=== PATIENT | female | born 1970 | race Caucasian/White ===

== ENCOUNTER 2017-09-15 12:14 | Inpatient (IN) | payer OTHER ==
[2017-09-15 13:15] LABS: Hematocrit 39.7 % (30.3-42.9); Hemoglobin 13.4 gm/dl (10.1-14.3); Mean Corpuscular HGB Conc 34 % (30-34); Mean Corpuscular Hemoglobin 29 pg (28-32); Mean Corpuscular Volume 86 fl (79-97); Platelet Count 285 K/mm3 (140-440); Red Blood Count 4.63 M/mm3 (3.65-5.03); Red Cell Distribution Width 13.3 % (13.2-15.2); White Blood Count 10.9 K/mm3 (4.5-11.0)
[2017-09-15 13:56] LABS: Anion Gap TNR mmol/L; BUN/Creatinine Ratio TNR; Blood Urea Nitrogen TNR mg/dL (7-17); Carbon Dioxide TNR mmol/L (22-30); Chloride TNR mmol/L (98-107); Glucose TNR mg/dL (65-100); Potassium TNR mmol/L (3.6-5.0); Sodium TNR mmol/L (137-145)
[2017-09-15 13:57] LABS: Alanine Aminotransferase TNR units/L (7-56); Albumin TNR g/dL (3.9-5); Albumin/Globulin Ratio TNR %; Alkaline Phosphatase TNR units/L (35-129); Bilirubin,Total TNR mg/dL (0.1-1.2); Calcium TNR mg/dL (8.4-10.2); Total Protein TNR g/dL (6.3-8.2)
[2017-09-15 14:18] LABS: Anion Gap 18 mmol/L; BUN/Creatinine Ratio 20; Blood Urea Nitrogen 8 mg/dL (7-17); Calcium 8.6 mg/dL (8.4-10.2); Carbon Dioxide 23 mmol/L (22-30); Chloride 96.7 mmol/L (98-107); Glucose 131 mg/dL (65-100); Potassium 3.7 mmol/L (3.6-5.0); Sodium 134 mmol/L (137-145)
[2017-09-15 14:22] LABS: Alanine Aminotransferase 13 units/L (7-56); Albumin 4.3 g/dL (3.9-5); Albumin/Globulin Ratio 1.3 %; Alkaline Phosphatase 87 units/L (35-129); Total Protein 7.6 g/dL (6.3-8.2)
[2017-09-15 14:23] LABS: Bilirubin,Direct < 0.2 mg/dL (0-0.2)
[2017-09-15] MEDS ORDERED: APRESOLINE IV ONE (14:26)
--- NOTE | 2017-09-15 14:27 | Emergency Department Report ---
ED General Adult HPI - General Chief complaint: Dizziness Stated complaint: DIZZY Time Seen by Provider: 09/15/17 13:47 Source: patient, family, RN notes reviewed Mode of arrival: Ambulatory Limitations: Language Barrier - History of Present Illness Initial comments: offender employment specialist: Jeannie Perdue This is a 47-year-old female who was previously unknown to this provider. She does not have a local primary care doctor, she reports a past medical history of obesity hypertension and high cholesterol. She presents to the ER with a complaint of dizziness. The dizziness has been intermittent over the past few days. It worsens when she walks. It decreases with rest. She initially denies headache, neck pain, chest pain, abdominal pain or shortness of breath. She describes the dizziness as a sensation of feeling drunk, and unsteady. -: Gradual, days(s) Severity scale (0 -10): 3 Consistency: intermittent Improves with: rest Worsens with: movement Associated Symptoms: malaise, weakness. denies: confusion, chest pain, cough, diaphoresis, fever/chills, loss of appetite - Related Data Home Medications Medication Instructions Recorded Confirmed Last Taken No Known Home Medications [No 09/15/17 09/15/17 Unknown Reported Home Medications] Allergies Allergy/AdvReac Type Severity Reaction Status Date / Time No Known Allergies Allergy Unverified 09/15/17 12:26 ED Review of Systems ROS: Stated complaint: DIZZY Other details as noted in HPI Constitutional: malaise, weakness. denies: fever Eyes: denies: eye discharge, vision change ENT: denies: epistaxis Respiratory: denies: cough Cardiovascular: denies: chest pain Gastrointestinal: denies: abdominal pain Genitourinary: as per HPI. denies: dysuria Musculoskeletal: denies: back pain Skin: denies: lesions Neurological: headache, abnormal gait Psychiatric: as per HPI ED Past Medical Hx - Past Medical History Additional medical history: elevated cholesterol - Surgical History Past Surgical History?: No - Social History Smoking Status: Never Smoker Substance Use Type: None - Medications Home Medications: Home Medications Medication Instructions Recorded Confirmed Last Taken Type No Known Home Medications [No 09/15/17 09/15/17 Unknown History Reported Home Medications] ED Physical Exam - General Limitations: Language Barrier General appearance: alert, in no apparent distress - Head Head exam: Present: atraumatic, normocephalic - Eye Eye exam: Present: normal appearance, PERRL, EOMI, other (visual acuity intact to finger counting, color perception, ). Absent: nystagmus - ENT ENT exam: Present: normal exam, normal orophraynx, mucous membranes moist, normal external ear exam - Neck Neck exam: Present: normal inspection, full ROM. Absent: tenderness, meningismus - Respiratory Respiratory exam: Present: normal lung sounds bilaterally. Absent: respiratory distress, wheezes, rales, rhonchi, stridor, chest wall tenderness - Cardiovascular Cardiovascular Exam: Present: regular rate, normal rhythm, normal heart sounds. Absent: bradycardia, tachycardia, irregular rhythm, systolic murmur, diastolic murmur, rubs, gallop - GI/Abdominal GI/Abdominal exam: Present: soft, normal bowel sounds. Absent: distended, tenderness, guarding, rebound, rigid, pulsatile mass - Extremities Exam Extremities exam: Present: normal inspection, full ROM, normal capillary refill. Absent: pedal edema, joint swelling, calf tenderness - Back Exam Back exam: Present: normal inspection, full ROM. Absent: tenderness, CVA tenderness (R), CVA tenderness (L), muscle spasm, paraspinal tenderness, vertebral tenderness - Neurological Exam Neurological exam: Present: alert, oriented X3, CN II-XII intact, abnormal gait (abnormal gait. Unable to perform Romberg examination, unable to perform tandem gait), other (Extraocular movements intact. Tongue midline. No facial droop. Facial sensation intact to light touch in the V1, V2, V3 distribution bilaterally. 5 and 5 strength in 4 extremities.. Sensation is intact to light touch in 4 extremities.). Absent: motor sensory deficit - Psychiatric Psychiatric exam: Present: normal affect, normal mood - Skin Skin exam: Present: warm, dry, intact, normal color. Absent: rash ED Course Vital Signs 09/15/17 09/15/17 09/15/17 12:22 12:45 13:00 Temperature 98.5 F Pulse Rate 84 74 Respiratory 18 16 Rate Blood Pressure 251/112 226/94 Blood Pressure 226/94 [Right] O2 Sat by Pulse 97 99 98 Oximetry 09/15/17 09/15/17 09/15/17 13:30 14:00 14:30 Temperature Pulse Rate 67 70 Respiratory 14 17 Rate Blood Pressure 221/95 221/95 212/104 Blood Pressure [Right] O2 Sat by Pulse 98 97 98 Oximetry 09/15/17 09/15/17 09/15/17 14:33 15:10 15:32 Temperature Pulse Rate 72 Respiratory Rate Blood Pressure 204/90 193/93 193/93 Blood Pressure [Right] O2 Sat by Pulse 92 98 Oximetry 09/15/17 09/15/17 09/15/17 16:00 16:30 17:00 Temperature Pulse Rate 84 Respiratory 17 Rate Blood Pressure 193/93 185/104 185/104 Blood Pressure [Right] O2 Sat by Pulse 98 96 97 Oximetry ED Medical Decision Making - Lab Data Result diagrams: 09/15/17 12:57 09/15/17 13:54 Vital Signs 09/15/17 09/15/17 09/15/17 12:22 12:45 13:00 Temperature 98.5 F Pulse Rate 84 74 Respiratory 18 16 Rate Blood Pressure 251/112 226/94 Blood Pressure 226/94 [Right] O2 Sat by Pulse 97 99 98 Oximetry 09/15/17 09/15/17 09/15/17 13:30 14:00 14:30 Temperature Pulse Rate 67 70 Respiratory 14 17 Rate Blood Pressure 221/95 221/95 212/104 Blood Pressure [Right] O2 Sat by Pulse 98 97 98 Oximetry 09/15/17 09/15/17 09/15/17 14:33 15:10 15:32 Temperature Pulse Rate 72 Respiratory Rate Blood Pressure 204/90 193/93 193/93 Blood Pressure [Right] O2 Sat by Pulse 92 98 Oximetry 09/15/17 16:00 Temperature Pulse Rate Respiratory Rate Blood Pressure 193/93 Blood Pressure [Right] O2 Sat by Pulse 98 Oximetry Lab Results 09/15/17 09/15/17 09/15/17 Range/Units 12:57 13:00 13:00 WBC 10.9 (4.5-11.0) K/mm3 RBC 4.63 (3.65-5.03) M/mm3 Hgb 13.4 (10.1-14.3) gm/dl Hct 39.7 (30.3-42.9) % MCV 86 (79-97) fl MCH 29 (28-32) pg MCHC 34 (30-34) % RDW 13.3 (13.2-15.2) % Plt Count 285 (140-440) K/mm3 Sodium TNR Potassium TNR Chloride TNR Carbon Dioxide TNR Anion Gap TNR BUN TNR Creatinine TNR Estimated GFR > 60 ml/min BUN/Creatinine Ratio TNR Glucose TNR Calcium TNR Magnesium (1.7-2.3) mg/dL Total Bilirubin TNR Direct Bilirubin (0-0.2) mg/dL AST TNR ALT TNR Alkaline Phosphatase TNR Troponin T < 0.010 (0.00-0.029) ng/mL Total Protein TNR Albumin TNR Albumin/Globulin Ratio TNR 09/15/17 09/15/17 Range/Units 13:54 13:54 WBC (4.5-11.0) K/mm3 RBC (3.65-5.03) M/mm3 Hgb (10.1-14.3) gm/dl Hct (30.3-42.9) % MCV (79-97) fl MCH (28-32) pg MCHC (30-34) % RDW (13.2-15.2) % Plt Count (140-440) K/mm3 Sodium 134 L Potassium 3.7 Chloride 96.7 L Carbon Dioxide 23 Anion Gap 18 BUN 8 Creatinine 0.4 L Estimated GFR > 60 ml/min BUN/Creatinine Ratio 20 Glucose 131 H Calcium 8.6 Magnesium 2.10 (1.7-2.3) mg/dL Total Bilirubin 0.70 Direct Bilirubin < 0.2 (0-0.2) mg/dL AST 14 ALT 13 Alkaline Phosphatase 87 Troponin T < 0.010 (0.00-0.029) ng/mL Total Protein 7.6 Albumin 4.3 Albumin/Globulin Ratio 1.3 - EKG Data -: EKG Interpreted by Mi - EKG Data 09/15/17 16:40 Normal sinus, 73 bpm, QTC prolonged, high left ventricular voltage, poor R-wave progression, abnormal EKG, not morphologically consistent with ST elevation myocardial infarction - Radiology Data Radiology results: report reviewed, image reviewed Noncontrast CT scan of the brain is negative for acute findings - Medical Decision Making Differential diagnosis, including but not limited to: Hypertensive urgency, vertebral basilar insufficiency, posterior reversible encephalopathy syndrome, transient ischemic attack, subacute stroke Assessment and plan: 47-year-old female presenting with a few days of unsteady gait and initially no headache, neck pain, chest pain, abdominal pain or shortness of breath. Neurologic examination nonfocal with the exception of broad-based gait, and some posterior circulation signs. She denies neck pain, and she initially denied headache. She is somewhat hypertensive, and is given hydralazine. TPA candidate given onset of symptoms greater than 4.5 hours. Not an endovascular candidate as symptoms have been going on for days. Therefore, no indication to obtain emergent CT angiogram of the head and neck. Case is presented to the Hospital physician, Dr Rubin, who accepted the patient to the medical service for the aforementioned. Critical care attestation.: If time is entered above; I have spent that time in minutes in the direct care of this critically ill patient, excluding procedure time. ED Disposition Clinical Impression: Ataxia, Hypertensive urgency, malignant Disposition: DC-09 OP ADMIT IP TO THIS HOSP Is pt being admited?: Yes Condition: Good Referrals: PRIMARY CARE, [Primary Care Provider] - 3-5 Days
--- NOTE | 2017-09-15 14:35 | XRay Report ---
AP CHEST: HISTORY: Shortness of breath AP view of the chest demonstrates a normal mediastinal and cardiac contour with clear lungs and normal bony and soft tissue structures. IMPRESSION: Unremarkable AP chest.
--- NOTE | 2017-09-15 15:17 | Cat Scan Report ---
FINAL REPORT EXAM: CT HEAD/BRAIN WO CON HISTORY: ataxia, htn TECHNIQUE: CT of the Head without IV contrast. PRIORS: None currently available. FINDINGS: Nearly symmetrical, bilateral decreased attenuation areas in both periventricular white matters of the frontal lobes are not specific. Small lacunar type infarcts in the right and left basal ganglia appear chronic. Posterior fossa arachnoid cysts noted. There is no evidence for acute ischemia. There is no hemorrhage. There is no midline shift. There is no hydrocephalus. There is no mass. Age appropriate whitman-white matter attenuation is noted. There is no calvarial fracture. The temporal bones demonstrate aerated mastoid air cells. The middle ears appear unremarkable. Partially imaged opacified right maxillary sinus noted. Globes are intact. IMPRESSION: Focal areas of near symmetrical decreased attenuation in the periventricular white matter of both frontal lobes is atypical for chronic ischemic changes. Differential diagnosis includes migraines, demyelinating process, encephalitis/encephalopathy, metabolic and toxic encephalopathy and trauma. If clinically indicated further imaging with MRI with and without contrast is recommended. Chronic appearing lacunar infarcts in both basal ganglias. Right maxillary sinus disease.
[2017-09-15] MEDS ORDERED: BABY ASPIRIN PO ONE (15:20)
[2017-09-15] MEDS ORDERED: PERCOCET 5/325 PO PRN (18:24)
[2017-09-15] MEDS ORDERED: DULCOLAX PR PRN (18:24)
[2017-09-15] MEDS ORDERED: MILK OF MAGNESIA PO PRN (18:24)
--- NOTE | 2017-09-15 18:24 | History and Physical Report ---
History of Present Illness Date of examination: 09/15/17 Date of admission: 09/15/17 Chief complaint: CC Dizziness for 4 days High BP History of present illness: GIL: 47-year-old female with past medical history of obesity hypertension and high cholesterol presents to the ER with a complaint of dizziness. The dizziness has been intermittent over the past few days. It worsens when she walks. It decreases with rest. She initially denies headache , neck pain, chest pain, abdominal pain or shortness of breath. She describes the dizziness as a sensation of feeling drunk, and unsteady. Associated Symptoms: malaise, weakness. denies: confusion, chest pain, cough, diaphoresis, fever/chills, loss of appetite - Past Medical History Additional medical history: elevated cholesterol Htn not taking any meds - Surgical History Past Surgical History?: No - Social History Smoking Status: Never Smoker Substance Use Type: None - Medications Home Medications: Home Medications Medication Instructions Recorded Confirmed Last Taken Type No Known Home Medications [No 09/15/17 09/15/17 Unknown History Reported Home Medications] Review of Systems Stated complaint: DIZZY Other details as noted in HPI Constitutional: malaise, weakness. denies: fever Eyes: denies: eye discharge, vision change ENT: denies: epistaxis Respiratory: denies: cough Cardiovascular: denies: chest pain Gastrointestinal: denies: abdominal pain Genitourinary: as per HPI. denies: dysuria Musculoskeletal: denies: back pain Skin: denies: lesions Neurological: headache, abnormal gait Psychiatric: as per HPI Medications and Allergies Allergies Allergy/AdvReac Type Severity Reaction Status Date / Time No Known Allergies Allergy Unverified 09/15/17 12:26 Home Medications Medication Instructions Recorded Confirmed Last Taken Type No Known Home Medications [No 09/15/17 09/15/17 Unknown History Reported Home Medications] Exam - Constitutional Vitals: Temp Pulse Resp BP Pulse Ox 98.5 F 84 17 185/104 97 09/15/17 12:22 09/15/17 17:00 09/15/17 17:00 09/15/17 17:00 09/15/17 17:00 General appearance: Present: no acute distress, well-nourished - EENT Eyes: Present: PERRL ENT: hearing intact, clear oral mucosa - Neck Neck: Present: supple, normal ROM - Respiratory Respiratory effort: normal Respiratory: bilateral: CTA - Cardiovascular Heart Sounds: Present: S1 & S2. Absent: rub, click - Extremities Extremities: pulses symmetrical, No edema Peripheral Pulses: within normal limits - Abdominal General gastrointestinal: Present: soft, non-tender, non-distended, normal bowel sounds Female genitourinary: Present: normal - Integumentary Integumentary: Present: clear, warm, dry - Musculoskeletal Musculoskeletal: gait normal, strength equal bilaterally - Psychiatric Psychiatric: appropriate mood/affect, intact judgment & insight - Neurologic Neurologic: CNII-XII intact, moves all extremities Results - Labs CBC & Chem 7: 09/16/17 05:58 09/16/17 05:58 Labs: Laboratory Last Values WBC 10.9 K/mm3 (4.5-11.0) 09/15/17 12:57 RBC 4.63 M/mm3 (3.65-5.03) 09/15/17 12:57 Hgb 13.4 gm/dl (10.1-14.3) 09/15/17 12:57 Hct 39.7 % (30.3-42.9) 09/15/17 12:57 MCV 86 fl (79-97) 09/15/17 12:57 MCH 29 pg (28-32) 09/15/17 12:57 MCHC 34 % (30-34) 09/15/17 12:57 RDW 13.3 % (13.2-15.2) 09/15/17 12:57 Plt Count 285 K/mm3 (140-440) 09/15/17 12:57 Sodium 134 mmol/L (137-145) L 09/15/17 13:54 Potassium 3.7 mmol/L (3.6-5.0) 09/15/17 13:54 Chloride 96.7 mmol/L (98-107) L 09/15/17 13:54 Carbon Dioxide 23 mmol/L (22-30) 09/15/17 13:54 Anion Gap 18 mmol/L 09/15/17 13:54 BUN 8 mg/dL (7-17) 09/15/17 13:54 Creatinine 0.4 mg/dL (0.7-1.2) L 09/15/17 13:54 Estimated GFR > 60 ml/min 09/15/17 13:54 BUN/Creatinine Ratio 20 % 09/15/17 13:54 Glucose 131 mg/dL (65-100) H 09/15/17 13:54 Calcium 8.6 mg/dL (8.4-10.2) 09/15/17 13:54 Magnesium 2.10 mg/dL (1.7-2.3) 09/15/17 13:54 Total Bilirubin 0.70 mg/dL (0.1-1.2) 09/15/17 13:54 Direct Bilirubin < 0.2 mg/dL (0-0.2) 09/15/17 13:54 AST 14 units/L (5-40) 09/15/17 13:54 ALT 13 units/L (7-56) 09/15/17 13:54 Alkaline Phosphatase 87 units/L (35-129) 09/15/17 13:54 Troponin T < 0.010 ng/mL (0.00-0.029) 09/15/17 13:54 Total Protein 7.6 g/dL (6.3-8.2) 09/15/17 13:54 Albumin 4.3 g/dL (3.9-5) 09/15/17 13:54 Albumin/Globulin Ratio 1.3 % 09/15/17 13:54 - Imaging and Cardiology EKG: report reviewed (NSR LVH by voltage criteria) Assessment and Plan Advance Directives: Yes (Full code) VTE prophylaxis?: Chemical Plan of care discussed with patient/family: Yes - Patient Problems (1) Hypertensive urgency, malignant Current Visit: Yes Status: Acute Plan to address problem: Patient started on Losartan carvedilol and Amlodipine. Hydralazine 10 mg IV q3 PRN Compliance is the issue. To school adjustment counselor about compliance again (2) Encephalopathy, hypertensive Current Visit: Yes Status: Acute Plan to address problem: Correct the BP gradually MRI brain ordered-Expect it to be negative (3) Hyperglycemia Current Visit: Yes Status: Acute Plan to address problem: probably has diabetes. Accucheks and A1c Start oral hypoglycemics if confirmed (4) Ataxia Current Visit: Yes Status: Acute Plan to address problem: sec to Hypertensive encephalopathy. Should resolve with correction of BP (5) HLD (hyperlipidemia) Current Visit: Yes Status: Chronic Qualifiers: Hyperlipidemia type: mixed hyperlipidemia Qualified Code(s): E78.2 - Mixed hyperlipidemia Plan to address problem: Add Statins (6) DVT prophylaxis Current Visit: Yes Status: Acute Plan to address problem: On Lovenox
[2017-09-15 18:44] LABS: Bacteria,Urine 1+ /HPF (Negative); Bilirubin,Urine NEG (Negative); Blood,Urine NEG (Negative); Ketones,Urine 20 mg/dL (Negative); Leukocyte Esterase,Urine TR (Negative); Mucus,Urine FEW /HPF; Nitrite,Urine NEG (Negative); Protein,Urine <15 mg/dL mg/dL (Negative); Urobilinogen,Urine < 2.0 mg/dL (<2.0)
[2017-09-15] MEDS ORDERED: NORVASC ONE (18:48)
[2017-09-15] MEDS: NORVASC PO SCH (18:58)
[2017-09-15] MEDS: APRESOLINE IV PRN ×2 (19:00→22:49)
[2017-09-15] MEDS: ZOFRAN IV PRN (19:00)
[2017-09-15] MEDS ORDERED: COZAAR ONE (19:04)
[2017-09-15] MEDS ORDERED: DILAUDID ONE (19:47)
[2017-09-15] MEDS: DILAUDID IV PRN (19:53)
[2017-09-15] MEDS ORDERED: REGLAN ONE (20:01)
[2017-09-15] MEDS: REGLAN IV PRN (20:05)
[2017-09-15] MEDS: COREG PO SCH (22:49)
[2017-09-16] MEDS: ZOFRAN IV PRN ×2 (02:12→22:32)
[2017-09-16] MEDS: APRESOLINE IV PRN ×2 (02:12→09:21)
[2017-09-16 06:15] LABS: Basophils % (Auto) 0.8 % (0.0-1.8); Hematocrit 38.8 % (30.3-42.9); Hemoglobin 13.2 gm/dl (10.1-14.3); Mean Corpuscular HGB Conc 34 % (30-34); Mean Corpuscular Hemoglobin 29 pg (28-32); Mean Corpuscular Volume 85 fl (79-97); Platelet Count 286 K/mm3 (140-440); Red Blood Count 4.55 M/mm3 (3.65-5.03); Red Cell Distribution Width 13.8 % (13.2-15.2); White Blood Count 12.3 K/mm3 (4.5-11.0)
[2017-09-16 06:36] LABS: Alanine Aminotransferase 14 units/L (7-56); Albumin 4.1 g/dL (3.9-5); Albumin/Globulin Ratio 1.1 %; Alkaline Phosphatase 76 units/L (35-129); Anion Gap 20 mmol/L; BUN/Creatinine Ratio 38; Blood Urea Nitrogen 15 mg/dL (7-17); Calcium 8.7 mg/dL (8.4-10.2); Carbon Dioxide 22 mmol/L (22-30); Chloride 96.8 mmol/L (98-107); Glucose 248 mg/dL (65-100); Potassium 3.5 mmol/L (3.6-5.0); Sodium 135 mmol/L (137-145); Total Protein 7.7 g/dL (6.3-8.2)
[2017-09-16] MEDS: NOVOLOG SUB-Q SCH ×4 (07:30→22:10)
[2017-09-16] MEDS ORDERED: NACL 0.9% 1000 ML 1,000 ML IV SCH (09:00)
[2017-09-16] MEDS: REGLAN IV PRN (09:18)
[2017-09-16] MEDS: LOVENOX SUB-Q SCH (09:26)
[2017-09-16] MEDS: NORVASC PO SCH (11:46)
[2017-09-16] MEDS: COZAAR PO SCH ×2 (11:47→19:43)
[2017-09-16] MEDS: COREG PO SCH ×2 (11:47→22:09)
--- NOTE | 2017-09-16 14:08 | Progress Note ---
Assessment and Plan - Patient Problems (1) Hypertensive urgency, malignant Current Visit: Yes Status: Acute Plan to address problem: Patient started on Losartan carvedilol and Amlodipine. Hydralazine 10 mg IV q3 PRN Compliance is the issue. BNP normalized (2) Encephalopathy, hypertensive Current Visit: Yes Status: Acute Plan to address problem: Correct the BP gradually MRI brain pending (3) Hyperglycemia Current Visit: Yes Status: Acute Plan to address problem: probably has diabetes. Accucheks and A1c Start oral hypoglycemics if confirmed (4) Ataxia Current Visit: Yes Status: Acute Plan to address problem: sec to Hypertensive encephalopathy. Should resolve with correction of BP (5) HLD (hyperlipidemia) Current Visit: Yes Status: Chronic Qualifiers: Hyperlipidemia type: mixed hyperlipidemia Qualified Code(s): E78.2 - Mixed hyperlipidemia Plan to address problem: Add Statins (6) DVT prophylaxis Current Visit: Yes Status: Acute Plan to address problem: On Lovenox Subjective Date of service: 09/16/17 Principal diagnosis: Hypertensive emergency and Encephalopathy Interval history: Still naseous and apparently vomited 5 times Objective - Constitutional Vitals: Vital Signs - 12hr 09/16/17 09/16/17 09/16/17 05:14 09:21 10:00 Temperature 98.6 F Pulse Rate 83 94 H Pulse Rate [ 106 H Apical] Respiratory 20 Rate Blood Pressure 153/77 171/86 O2 Sat by Pulse 96 Oximetry 09/16/17 09/16/17 11:46 11:47 Temperature Pulse Rate 99 H 99 H Pulse Rate [ Apical] Respiratory Rate Blood Pressure 135/65 135/65 O2 Sat by Pulse Oximetry General appearance: Present: no acute distress, well-nourished - EENT Eyes: PERRL, EOM intact ENT: hearing intact, clear oral mucosa Ears: bilateral: normal - Neck Neck: supple, normal ROM - Respiratory Respiratory effort: normal Respiratory: bilateral: CTA - Breasts Breasts: normal - Cardiovascular Heart rate: 76 Rhythm: regular Heart Sounds: Present: S1 & S2. Absent: gallop, rub Extremities: no ischemia, pulses intact, No edema, normal color, Full ROM - Gastrointestinal General gastrointestinal: Present: soft, non-tender, non-distended, normal bowel sounds - Genitourinary Female genitourinary: normal - Integumentary Integumentary: clear, warm, dry - Musculoskeletal Musculoskeletal: 1, strength equal bilaterally - Neurologic Neurologic: moves all extremities - Psychiatric Psychiatric: memory intact, appropriate mood/affect, intact judgment & insight - Allied health notes Allied health notes reviewed: nursing, case management - Labs CBC & Chem 7: 09/16/17 05:58 09/16/17 05:58 Labs: Abnormal lab results 09/15/17 09/15/17 09/16/17 Range/Units 13:54 18:00 05:58 WBC 12.3 H (4.5-11.0) K/mm3 Lymph % (Auto) 13.3 L (13.4-35.0) % Seg Neutrophils % 84.1 H (40.0-70.0) % Seg Neutrophils # 10.3 H (1.8-7.7) K/mm3 Sodium 134 L (137-145) mmol/L Potassium (3.6-5.0) mmol/L Chloride 96.7 L (98-107) mmol/L Creatinine 0.4 L (0.7-1.2) mg/dL Glucose 131 H (65-100) mg/dL POC Glucose (70-105) Urine pH 8.0 H (5.0-7.0) 09/16/17 09/16/17 Range/Units 05:58 12:05 WBC (4.5-11.0) K/mm3 Lymph % (Auto) (13.4-35.0) % Seg Neutrophils % (40.0-70.0) % Seg Neutrophils # (1.8-7.7) K/mm3 Sodium 135 L (137-145) mmol/L Potassium 3.5 L (3.6-5.0) mmol/L Chloride 96.8 L (98-107) mmol/L Creatinine 0.4 L (0.7-1.2) mg/dL Glucose 248 H (65-100) mg/dL POC Glucose 227 H (70-105) Urine pH (5.0-7.0)
--- NOTE | 2017-09-16 17:45 | Magnetic Resonance Report ---
FINAL REPORT PROCEDURE: MR BRAIN WO CON TECHNIQUE: Magnetic resonance imaging of the brain was performed without contrast material. HISTORY: Ataxia COMPARISON: Head CT from the previous day FINDINGS: Cerebellar tonsils are normally positioned. There is a probable midline arachnoid cyst in the posterior fossa measuring 3.9 x 2.1 cm. Normal variant empty sella appearance is seen. Large retention cyst fills the right maxillary sinus. There are confluent areas of increased T2 signal in the bilateral basal ganglia and anterior padilla radiata. Associated mild decreased T1 signal is seen but is less prominent. No associated restricted diffusion is seen in this region. No mass effect is seen. While findings could be from chronic small vessel ischemic changes, a prior anoxic event or chronic metabolic abnormality could cause the appearance. Mild increased T2 signal in the gladys is likely from the same etiology. There is a tiny focus of restricted diffusion seen in the right side of the cervicomedullary junction, image 5 of the diffusion series. This has increased T2 signal and is worrisome for a recent lacunar infarct. No significant mass effect is seen. No evidence of intracranial hemorrhage is seen. IMPRESSION: Probable recent lacunar infarct is seen in the right side of the cervicomedullary junction. This has no significant mass effect. Chronic confluent increased T2 signal is seen in the basal ganglia and padilla radiata symmetrically. While finding could be from chronic small vessel ischemic changes, consideration should be given to prior anoxic event or chronic metabolic abnormality.
[2017-09-17] MEDS: REGLAN IV PRN ×2 (03:49→12:02)
[2017-09-17] MEDS: DILAUDID IV PRN (03:49)
[2017-09-17 06:12] LABS: Alanine Aminotransferase 13 units/L (7-56); Albumin 3.8 g/dL (3.9-5); Albumin/Globulin Ratio 1.2 %; Alkaline Phosphatase 66 units/L (35-129); Anion Gap 17 mmol/L; BUN/Creatinine Ratio 43; Blood Urea Nitrogen 34 mg/dL (7-17); Calcium 8.7 mg/dL (8.4-10.2); Carbon Dioxide 26 mmol/L (22-30); Chloride 102.5 mmol/L (98-107); Glucose 239 mg/dL (65-100); Potassium 3.6 mmol/L (3.6-5.0); Sodium 142 mmol/L (137-145); Total Protein 7.1 g/dL (6.3-8.2)
[2017-09-17] MEDS: NOVOLOG SUB-Q SCH ×5 (08:29→22:34)
[2017-09-17] MEDS: LOVENOX SUB-Q SCH (09:31)
[2017-09-17] MEDS: NORVASC PO SCH (09:32)
[2017-09-17] MEDS: COREG PO SCH ×2 (09:32→22:10)
[2017-09-17] MEDS: COZAAR PO SCH (09:32)
--- NOTE | 2017-09-17 13:12 | Progress Note ---
Assessment and Plan - Patient Problems (1) Acute CVA (cerebrovascular accident) Current Visit: Yes Status: Acute Plan to address problem: Small lacunar infarct in rt cervicomedullary junction.Maybe the reason for ataxia CDS MRA and Echo ordered. Plavix initiated Neuro consult initiated PT to continue (2) HTN (hypertension) Current Visit: Yes Status: Chronic Qualifiers: Hypertension type: essential hypertension Qualified Code(s): I10 - Essential (primary) hypertension Plan to address problem: Started on losartan Amlodipine and Coreg Was not taking any BP meds (3) T2DM (type 2 diabetes mellitus) Current Visit: Yes Status: Acute Qualifiers: Diabetes mellitus complication status: without complication Plan to address problem: New onset HbA1c 7.8 Diabetes education Glimepride 2 mg po qd initiated (4) Hypertensive urgency, malignant Current Visit: Yes Status: Acute Plan to address problem: Patient started on Losartan carvedilol and Amlodipine. Hydralazine 10 mg IV q3 PRN Compliance is the issue. BNP normalized (5) Encephalopathy, hypertensive Current Visit: Yes Status: Acute Plan to address problem: Resolved (6) Ataxia Current Visit: Yes Status: Acute Plan to address problem: sec to Hypertensive encephalopathy. Should resolve with correction of BP (7) HLD (hyperlipidemia) Current Visit: Yes Status: Chronic Qualifiers: Hyperlipidemia type: mixed hyperlipidemia Qualified Code(s): E78.2 - Mixed hyperlipidemia Plan to address problem: Add Statins (8) DVT prophylaxis Current Visit: Yes Status: Acute Plan to address problem: On Lovenox Subjective Date of service: 09/17/17 Principal diagnosis: Hypertensive emergency and Encephalopathy Interval history: No vomiting.Excess sputum Objective - Constitutional Vitals: Vital Signs - 12hr 09/17/17 09/17/17 09/17/17 03:49 04:08 07:43 Temperature 98.9 F Pulse Rate 84 87 Pulse Rate [ From Monitor] Respiratory 18 18 Rate Blood Pressure 135/69 145/70 O2 Sat by Pulse 91 82 L Oximetry 09/17/17 09/17/17 09/17/17 09:32 10:00 11:14 Temperature 99.9 F H Pulse Rate 87 83 92 H Pulse Rate [ 87 From Monitor] Respiratory 18 Rate Blood Pressure 145/70 154/79 O2 Sat by Pulse 90 Oximetry General appearance: Present: no acute distress, well-nourished - EENT Eyes: PERRL, EOM intact ENT: hearing intact, clear oral mucosa Ears: bilateral: normal - Neck Neck: supple, normal ROM - Respiratory Respiratory effort: normal Respiratory: bilateral: CTA - Breasts Breasts: normal - Cardiovascular Rhythm: regular Heart Sounds: Present: S1 & S2. Absent: gallop, rub Extremities: pulses intact, No edema, normal color, Full ROM - Gastrointestinal General gastrointestinal: Present: soft, non-tender, non-distended, normal bowel sounds - Genitourinary Female genitourinary: normal - Integumentary Integumentary: clear, warm, dry - Musculoskeletal Musculoskeletal: 1, strength equal bilaterally - Neurologic Neurologic: moves all extremities, other (Ataxic gait) - Psychiatric Psychiatric: memory intact, appropriate mood/affect, intact judgment & insight - Labs CBC & Chem 7: 09/16/17 05:58 09/17/17 05:30 Labs: Abnormal lab results 09/16/17 09/16/17 09/16/17 Range/Units 08:54 14:02 17:20 BUN (7-17) mg/dL Glucose (65-100) mg/dL POC Glucose 267 H 196 H 209 H (70-105) Hemoglobin A1c (4-6) % Albumin (3.9-5) g/dL 09/16/17 09/17/17 09/17/17 Range/Units 20:14 05:30 05:30 BUN 34 H (7-17) mg/dL Glucose 239 H (65-100) mg/dL POC Glucose 184 H (70-105) Hemoglobin A1c 7.8 H (4-6) % Albumin 3.8 L (3.9-5) g/dL 09/17/17 09/17/17 Range/Units 08:00 11:17 BUN (7-17) mg/dL Glucose (65-100) mg/dL POC Glucose 252 H 304 H (70-105) Hemoglobin A1c (4-6) % Albumin (3.9-5) g/dL - Imaging and cardiology MRI - head: report reviewed (Small lacunar infarct Rt Cervicomedullary junction)
[2017-09-17] MEDS: MUCINEX ER PO SCH ×2 (13:28→22:09)
--- NOTE | 2017-09-17 14:11 | Consultation ---
History of Present Illness Consult date: 09/17/17 History of present illness: will need high dose statin and aspirin / plavi for right medullary plate stroke the vertebrals and basilar artery are OK may be transfered to regular floor vertigo / ataxia expected to subside with PT Medications and Allergies Allergies Allergy/AdvReac Type Severity Reaction Status Date / Time No Known Allergies Allergy Unverified 09/15/17 12:26 Home Medications Medication Instructions Recorded Confirmed Last Taken Type No Known Home Medications [No 09/15/17 09/15/17 Unknown History Reported Home Medications] Active Meds: Active Medications Acetaminophen (Tylenol) 650 mg PO Q4H PRN PRN Reason: Pain MILD(1-3)/Fever >100.5/PAULINO Amlodipine Besylate (Norvasc) 10 mg PO QDAY [facility] Last Admin: 09/17/17 09:32 Dose: 10 mg Bisacodyl (Dulcolax) 10 mg MT QDAY PRN PRN Reason: Constipation unrelieved by MOM Carvedilol (Coreg) 12.5 mg PO BID [facility] Last Admin: 09/17/17 09:32 Dose: 12.5 mg Enoxaparin Sodium (Lovenox) 40 mg SUB-Q QDAY [facility] Last Admin: 09/17/17 09:31 Dose: 40 mg Glimepiride (Amaryl) 2 mg PO QDDIAB [facility] Guaifenesin (Mucinex Er) 600 mg PO BID [facility] Last Admin: 09/17/17 13:28 Dose: 600 mg Hydralazine HCl (Apresoline) 10 mg IV Q3H PRN PRN Reason: Hypertension Last Admin: 09/16/17 09:21 Dose: 10 mg Hydromorphone HCl (Dilaudid) 0.5 mg IV Q3H PRN PRN Reason: Pain , Severe (7-10) Last Admin: 09/17/17 03:49 Dose: 0.5 mg Insulin Aspart (Novolog) 0 units SUB-Q ACHS [facility] PRN Reason: Protocol Last Admin: 09/17/17 12:59 Dose: 6 units Losartan Potassium (Cozaar) 100 mg PO QDAY [facility] Last Admin: 09/17/17 09:32 Dose: 100 mg Magnesium Hydroxide (Milk Of Magnesia) 30 ml PO Q4H PRN PRN Reason: Constipation Metoclopramide HCl (Reglan) 10 mg IV Q6H PRN PRN Reason: Nausea And Vomiting Last Admin: 09/17/17 12:02 Dose: 10 mg Ondansetron HCl (Zofran) 4 mg IV Q3H PRN PRN Reason: N/V unrelieved by Juan Diego Last Admin: 09/16/17 22:32 Dose: 4 mg Oxycodone/Acetaminophen (Percocet 5/325) 1 tab PO Q6H PRN PRN Reason: Pain, Moderate (4-6) Pravastatin Sodium (Pravachol) 20 mg PO QHS [place] Physical Examination - Vital Signs Vital Signs: Vital Signs Temp Pulse Resp BP Pulse Ox 98.5 F 84 18 251/112 97 09/15/17 12:22 09/15/17 12:22 09/15/17 12:22 09/15/17 12:22 09/15/17 12:22 Results - Laboratory Findings CBC and BMP: 09/16/17 05:58 09/17/17 05:30 Abnormal Lab Findings: Abnormal Labs 09/15/17 09/15/17 09/16/17 13:54 18:00 05:58 WBC 12.3 H Lymph % (Auto) 13.3 L Seg Neutrophils % 84.1 H Seg Neutrophils # 10.3 H Sodium 134 L Potassium Chloride 96.7 L BUN Creatinine 0.4 L Glucose 131 H POC Glucose Hemoglobin A1c Albumin Urine pH 8.0 H 09/16/17 09/16/17 09/16/17 05:58 08:54 12:05 WBC Lymph % (Auto) Seg Neutrophils % Seg Neutrophils # Sodium 135 L Potassium 3.5 L Chloride 96.8 L BUN Creatinine 0.4 L Glucose 248 H POC Glucose 267 H 227 H Hemoglobin A1c Albumin Urine pH 09/16/17 09/16/17 09/16/17 14:02 17:20 20:14 WBC Lymph % (Auto) Seg Neutrophils % Seg Neutrophils # Sodium Potassium Chloride BUN Creatinine Glucose POC Glucose 196 H 209 H 184 H Hemoglobin A1c Albumin Urine pH 09/17/17 09/17/17 09/17/17 05:30 05:30 08:00 WBC Lymph % (Auto) Seg Neutrophils % Seg Neutrophils # Sodium Potassium Chloride BUN 34 H Creatinine Glucose 239 H POC Glucose 252 H Hemoglobin A1c 7.8 H Albumin 3.8 L Urine pH 09/17/17 11:17 WBC Lymph % (Auto) Seg Neutrophils % Seg Neutrophils # Sodium Potassium Chloride BUN Creatinine Glucose POC Glucose 304 H Hemoglobin A1c Albumin Urine pH
--- NOTE | 2017-09-17 14:50 | Magnetic Resonance Report ---
FINAL REPORT PROCEDURE: MR MRA/MRV HEAD WO CON TECHNIQUE: 3D [id number] MRA of the head was performed HISTORY: CVA COMPARISON: None FINDINGS: There is normal flow signal of the imaged portions of the internal carotid arteries, anterior and middle cerebral arteries and their branches. Mild atherosclerotic irregularity without high-grade stenosis or vascular occlusion is seen. The right anterior cerebral artery A1 segment is hypoplastic with the A2 segment being largely fed via a patent anterior communicating artery. Normal flow signal is present of the vertebral arteries at the skullbase, being roughly codominant. The basilar and posterior cerebral arteries are patent. There is mild atherosclerotic irregularity without high-grade stenosis. Incidentally seen is the right anterior cerebral artery and bilateral superior cerebellar arteries. There is no high-grade stenosis, vascular occlusion, aneurysm, or AV fistulas suspected. IMPRESSION: Atherosclerotic irregularity without high-grade stenosis or vascular occlusion. Hypoplastic right anterior cerebral artery A1 segment, the A2 segment being fed via a patent A-comm.
[2017-09-17] MEDS: AMARYL PO SCH (16:34)
[2017-09-17] MEDS: TYLENOL PO PRN (16:34)
[2017-09-17] MEDS: ZOFRAN IV PRN (22:09)
[2017-09-17] MEDS: PRAVACHOL PO SCH (22:35)
[2017-09-18] MEDS: DILAUDID IV PRN ×2 (06:09→23:35)
[2017-09-18] MEDS: NOVOLOG SUB-Q SCH ×4 (09:05→22:37)
[2017-09-18] MEDS: AMARYL PO SCH (09:06)
[2017-09-18] MEDS: COZAAR PO SCH (09:38)
[2017-09-18] MEDS: MUCINEX ER PO SCH ×2 (09:38→21:31)
[2017-09-18] MEDS: NORVASC PO SCH (09:38)
[2017-09-18] MEDS: COREG PO SCH ×2 (09:38→21:31)
--- NOTE | 2017-09-18 10:23 | Progress Note ---
Assessment and Plan Assessment and plan: Patient is a 47-year-old Nepali-speaking woman with a history of hypertension and dyslipidemia not taking any medication presented with dizziness, headache and poor balance. She was found to have a blood pressure 185/104. Brain MRI read as probable recent right infarct at cervical medullary junction. Echocardiogram read as estimated EF 55-60%, trace MR, trace TR. Brain MRA read as atherosclerotic changes without high-grade stenosis of vascular occlusion. -Acute ischemic stroke with ataxia: Treated with aspirin, statin, rehabilitation , neurology is following -Accelerated hypertension: IV when necessary antihypertensive -Hyperglycemia most likely new diabetes mellitus type 2, A1c 7.8: Treated with sliding-scale -New issue, Dysphagia mostly related stroke: MBS ordered -New issue, low-grade temperature 100.2F with leukocytosis most likely serves, POA: Check blood cultures and empirically treated with antibiotics, get ua, cxr -Hypokalemia, resolved: Recheck monitor closely-hyponatremia, resolved: Continue to monitor -DVT prophylaxis: sq lovenox History Interval history: Patient seen and examined. Follow-up dizziness, nausea. Patient still doesn't feel well. The son-in-law, Sherif, at bedside was steeler. Hospitalist Physical - Physical exam Narrative exam: GEN: Obese BMI 32 ill-appearing, NAD, AWAKE, ALERT, ORIENTATED 3 HEENT: NCAT, EOMI, PERRL, OP Clear NECK: supple, no adenopathy, no thyromegaly, no JVD CVS/HEART: RRR, NORMAL S1S2, NO JVD, pulses present bilaterally CHEST/LUNGS: CTA B, Symmetrical chest expansion, good air entry bilaterally GI/Abdomen: soft, NTND, good bowel sounds, no guarding or rebound /Bladder: no suprapubic tenderness, no CVA or paraspinal tenderness EXT/Skin: no c/c/e, no obvious rash MSK: FROM x 4 Neuro: CN 2-12 grossly intact, no pronator drift but significant right finger to nose past-pointing Psych: calm - Constitutional Vitals: Temp Pulse Resp BP Pulse Ox 99.8 F H 92 H 18 178/85 86 09/18/17 08:34 09/18/17 08:34 09/18/17 08:34 09/18/17 08:34 09/18/17 08:34 General appearance: Present: no acute distress, well-nourished Results - Labs CBC & Chem 7: 09/16/17 05:58 09/17/17 05:30 Labs: Laboratory Last Values WBC 12.3 K/mm3 (4.5-11.0) H 09/16/17 05:58 RBC 4.55 M/mm3 (3.65-5.03) 09/16/17 05:58 Hgb 13.2 gm/dl (10.1-14.3) 09/16/17 05:58 Hct 38.8 % (30.3-42.9) 09/16/17 05:58 MCV 85 fl (79-97) 09/16/17 05:58 MCH 29 pg (28-32) 09/16/17 05:58 MCHC 34 % (30-34) 09/16/17 05:58 RDW 13.8 % (13.2-15.2) 09/16/17 05:58 Plt Count 286 K/mm3 (140-440) 09/16/17 05:58 Lymph % (Auto) 13.3 % (13.4-35.0) L 09/16/17 05:58 [place] % (Auto) 1.8 % (0.0-7.3) 09/16/17 05:58 Eos % (Auto) 0.0 % (0.0-4.3) 09/16/17 05:58 Baso % (Auto) 0.8 % (0.0-1.8) 09/16/17 05:58 Lymph # 1.6 K/mm3 (1.2-5.4) 09/16/17 05:58 [place] # 0.2 K/mm3 (0.0-0.8) 09/16/17 05:58 Eos # 0.0 K/mm3 (0.0-0.4) 09/16/17 05:58 Baso # 0.1 K/mm3 (0.0-0.1) 09/16/17 05:58 Seg Neutrophils % 84.1 % (40.0-70.0) H 09/16/17 05:58 Seg Neutrophils # 10.3 K/mm3 (1.8-7.7) H 09/16/17 05:58 Sodium 142 mmol/L (137-145) D 09/17/17 05:30 Potassium 3.6 mmol/L (3.6-5.0) 09/17/17 05:30 Chloride 102.5 mmol/L (98-107) 09/17/17 05:30 Carbon Dioxide 26 mmol/L (22-30) 09/17/17 05:30 Anion Gap 17 mmol/L 09/17/17 05:30 BUN 34 mg/dL (7-17) H 09/17/17 05:30 Creatinine 0.8 mg/dL (0.7-1.2) D 09/17/17 05:30 Estimated GFR > 60 ml/min 09/17/17 05:30 BUN/Creatinine Ratio 43 % 09/17/17 05:30 Glucose 239 mg/dL (65-100) H 09/17/17 05:30 POC Glucose 169 (70-105) H 09/18/17 06:53 Hemoglobin A1c 7.8 % (4-6) H 09/17/17 05:30 Calcium 8.7 mg/dL (8.4-10.2) 09/17/17 05:30 Magnesium 2.10 mg/dL (1.7-2.3) 09/15/17 13:54 Total Bilirubin 0.80 mg/dL (0.1-1.2) 09/17/17 05:30 Direct Bilirubin < 0.2 mg/dL (0-0.2) 09/15/17 13:54 AST 12 units/L (5-40) 09/17/17 05:30 ALT 13 units/L (7-56) 09/17/17 05:30 Alkaline Phosphatase 66 units/L (35-129) 09/17/17 05:30 Troponin T < 0.010 ng/mL (0.00-0.029) 09/15/17 13:54 Total Protein 7.1 g/dL (6.3-8.2) 09/17/17 05:30 Albumin 3.8 g/dL (3.9-5) L 09/17/17 05:30 Albumin/Globulin Ratio 1.2 % 09/17/17 05:30 Urine Color Red (Yellow) 09/15/17 18:00 Urine Turbidity Clear (Clear) 09/15/17 18:00 Urine pH 8.0 (5.0-7.0) H 09/15/17 18:00 Ur Specific [place] 1.012 (1.003-1.030) 09/15/17 18:00 Urine Protein <15 mg/dl mg/dL (Negative) 09/15/17 18:00 Urine Glucose (UA) 150 mg/dL (Negative) 09/15/17 18:00 Urine Ketones 20 mg/dL (Negative) 09/15/17 18:00 Urine Blood Neg (Negative) 09/15/17 18:00 Urine Nitrite Neg (Negative) 09/15/17 18:00 Urine Bilirubin Neg (Negative) 09/15/17 18:00 Urine Urobilinogen < 2.0 mg/dL (<2.0) 09/15/17 18:00 Ur Leukocyte Esterase Tr (Negative) 09/15/17 18:00 Urine WBC (Auto) 2.0 /HPF (0.0-6.0) 09/15/17 18:00 Urine RBC (Auto) 2.0 /HPF (0.0-6.0) 09/15/17 18:00 U Epithel Cells (Auto) 2.0 /HPF (0-13.0) 09/15/17 18:00 Urine Bacteria (Auto) 1+ /HPF (Negative) 09/15/17 18:00 Urine Mucus Few /HPF 09/15/17 18:00 Urine HCG, Qual Negative (Negative) 09/15/17 18:00
--- NOTE | 2017-09-18 10:37 | Fluoroscopy Report ---
MODIFIED BARIUM SWALLOW: 09/18/17 09:30:00 CLINICAL: Stroke. Evaluate swallowing. FINDINGS: The patient ingested barium impregnated substances of varying consistencies and swallowing was observed fluoroscopically. For more detail, please refer to the speech pathologist's report.
[2017-09-18] MEDS: ROCEPHIN/NS 1 GM/50 ML 1 GM/50 ML BAG IV SCH (12:47)
[2017-09-18] MEDS: LOVENOX SUB-Q SCH (18:52)
[2017-09-18] MEDS: TYLENOL PO PRN (21:28)
[2017-09-18] MEDS: PRAVACHOL PO SCH (21:32)
[2017-09-19] MEDS: APRESOLINE IV PRN (03:15)
[2017-09-19 08:12] LABS: Bacteria,Urine 3+ /HPF (Negative); Bilirubin,Urine NEG (Negative); Blood,Urine NEG (Negative); Ketones,Urine NEG (Negative); Leukocyte Esterase,Urine LG (Negative); Mucus,Urine 3+ /HPF; Nitrite,Urine NEG (Negative)
[2017-09-19 08:29] LABS: WBC,Urine > 182.0 /HPF (0.0-6.0)
[2017-09-19] MEDS: AMARYL PO SCH (08:49)
[2017-09-19] MEDS: NOVOLOG SUB-Q SCH ×4 (08:49→22:27)
--- NOTE | 2017-09-19 10:59 | Progress Note ---
Assessment and Plan Assessment and plan: Patient is a 47-year-old [place]ic-speaking woman with a history of hypertension and dyslipidemia not taking any medication presented with dizziness, headache and poor balance. She was found to have a blood pressure 185/104. Brain MRI read as probable recent right infarct at cervical medullary junction. Echocardiogram read as estimated EF 55-60%, trace MR, trace TR. Brain MRA read as atherosclerotic changes without high-grade stenosis of vascular occlusion. -Acute ischemic stroke with ataxia with hemiparesis: Treated with aspirin, statin, rehabilitation, neurology evaluated, told pt she can't drive -Accelerated hypertension: IV when necessary antihypertensive -Hyperglycemia most likely new diabetes mellitus type 2, A1c 7.8: Treated with sliding-scale -New issue, Dysphagia mostly related stroke: diet modified -,Sepsis uti, POA: Checked blood cultures and empirically treated with antibiotics, get ua, cxr -Hypokalemia, resolved: Recheck monitor closely-hyponatremia, resolved: Continue to monitor -DVT prophylaxis: sq lovenox UA indicative of UTI, continue iv rocephin CXR ordered urine culture ordered. blood culture pending. History Interval history: Patient seen and examined. Follow-up dizziness, nausea. Patient still doesn't feel well. The daughter, Agueda, at bedside was synchronous motor assembler. Hospitalist Physical - Physical exam Narrative exam: GEN: Obese BMI 32 ill-appearing, NAD, AWAKE, ALERT, ORIENTATED 3 HEENT: NCAT, EOMI, PERRL, OP Clear NECK: supple, no adenopathy, no thyromegaly, no JVD CVS/HEART: RRR, NORMAL S1S2, NO JVD, pulses present bilaterally CHEST/LUNGS: CTA B, Symmetrical chest expansion, good air entry bilaterally GI/Abdomen: soft, NTND, good bowel sounds, no guarding or rebound /Bladder: no suprapubic tenderness, no CVA or paraspinal tenderness EXT/Skin: no c/c/e, no obvious rash MSK: FROM x 4 Neuro: CN 2-12 grossly intact, no pronator drift but significant right finger to nose past-pointing Psych: calm - Constitutional Vitals: Temp Pulse Resp BP Pulse Ox 98.4 F 82 22 139/79 91 09/19/17 07:45 09/19/17 07:45 09/19/17 07:45 09/19/17 07:45 09/19/17 07:45 General appearance: Present: no acute distress, well-nourished Results - Labs CBC & Chem 7: 09/16/17 05:58 09/17/17 05:30 Labs: Laboratory Last Values WBC 12.3 K/mm3 (4.5-11.0) H 09/16/17 05:58 RBC 4.55 M/mm3 (3.65-5.03) 09/16/17 05:58 Hgb 13.2 gm/dl (10.1-14.3) 09/16/17 05:58 Hct 38.8 % (30.3-42.9) 09/16/17 05:58 MCV 85 fl (79-97) 09/16/17 05:58 MCH 29 pg (28-32) 09/16/17 05:58 MCHC 34 % (30-34) 09/16/17 05:58 RDW 13.8 % (13.2-15.2) 09/16/17 05:58 Plt Count 286 K/mm3 (140-440) 09/16/17 05:58 Lymph % (Auto) 13.3 % (13.4-35.0) L 09/16/17 05:58 [place] % (Auto) 1.8 % (0.0-7.3) 09/16/17 05:58 Eos % (Auto) 0.0 % (0.0-4.3) 09/16/17 05:58 Baso % (Auto) 0.8 % (0.0-1.8) 09/16/17 05:58 Lymph # 1.6 K/mm3 (1.2-5.4) 09/16/17 05:58 [place] # 0.2 K/mm3 (0.0-0.8) 09/16/17 05:58 Eos # 0.0 K/mm3 (0.0-0.4) 09/16/17 05:58 Baso # 0.1 K/mm3 (0.0-0.1) 09/16/17 05:58 Seg Neutrophils % 84.1 % (40.0-70.0) H 09/16/17 05:58 Seg Neutrophils # 10.3 K/mm3 (1.8-7.7) H 09/16/17 05:58 Sodium 142 mmol/L (137-145) D 09/17/17 05:30 Potassium 3.6 mmol/L (3.6-5.0) 09/17/17 05:30 Chloride 102.5 mmol/L (98-107) 09/17/17 05:30 Carbon Dioxide 26 mmol/L (22-30) 09/17/17 05:30 Anion Gap 17 mmol/L 09/17/17 05:30 BUN 34 mg/dL (7-17) H 09/17/17 05:30 Creatinine 0.8 mg/dL (0.7-1.2) D 09/17/17 05:30 Estimated GFR > 60 ml/min 09/17/17 05:30 BUN/Creatinine Ratio 43 % 09/17/17 05:30 Glucose 239 mg/dL (65-100) H 09/17/17 05:30 POC Glucose 277 (70-105) H 09/19/17 05:33 Hemoglobin A1c 7.8 % (4-6) H 09/17/17 05:30 Calcium 8.7 mg/dL (8.4-10.2) 09/17/17 05:30 Magnesium 2.10 mg/dL (1.7-2.3) 09/15/17 13:54 Total Bilirubin 0.80 mg/dL (0.1-1.2) 09/17/17 05:30 Direct Bilirubin < 0.2 mg/dL (0-0.2) 09/15/17 13:54 AST 12 units/L (5-40) 09/17/17 05:30 ALT 13 units/L (7-56) 09/17/17 05:30 Alkaline Phosphatase 66 units/L (35-129) 09/17/17 05:30 Troponin T < 0.010 ng/mL (0.00-0.029) 09/15/17 13:54 Total Protein 7.1 g/dL (6.3-8.2) 09/17/17 05:30 Albumin 3.8 g/dL (3.9-5) L 09/17/17 05:30 Albumin/Globulin Ratio 1.2 % 09/17/17 05:30 Urine Color Yellow (Yellow) 09/19/17 02:31 Urine Turbidity Clear (Clear) 09/19/17 02:31 Urine pH 5.0 (5.0-7.0) 09/19/17 02:31 Ur Specific [place] 1.035 (1.003-1.030) H 09/19/17 02:31 Urine Protein 30 mg/dl mg/dL (Negative) 09/19/17 02:31 Urine Glucose (UA) >=500 mg/dL (Negative) 09/19/17 02:31 Urine Ketones Neg mg/dL (Negative) 09/19/17 02:31 Urine Blood Neg (Negative) 09/19/17 02:31 Urine Nitrite Neg (Negative) 09/19/17 02:31 Urine Bilirubin Neg (Negative) 09/19/17 02:31 Urine Urobilinogen 2.0 mg/dL (<2.0) 09/19/17 02:31 Ur Leukocyte Esterase Lg (Negative) 09/19/17 02:31 Urine WBC (Auto) > 182.0 /HPF (0.0-6.0) H 09/19/17 02:31 Urine RBC (Auto) 11.0 /HPF (0.0-6.0) 09/19/17 02:31 U Epithel Cells (Auto) 28.0 /HPF (0-13.0) H 09/19/17 02:31 Urine Bacteria (Auto) 3+ /HPF (Negative) 09/19/17 02:31 Urine Mucus 3+ /HPF 09/19/17 02:31 Urine Yeast ([place]) 2+ /HPF 09/19/17 02:31 Urine HCG, Qual Negative (Negative) 09/15/17 18:00
[2017-09-19] MEDS: ROCEPHIN/NS 1 GM/50 ML 1 GM/50 ML BAG IV SCH (11:05)
[2017-09-19] MEDS: COZAAR PO SCH (11:06)
[2017-09-19] MEDS: COREG PO SCH ×2 (11:06→22:26)
[2017-09-19] MEDS: NORVASC PO SCH (11:06)
[2017-09-19] MEDS: MUCINEX ER PO SCH ×2 (11:06→22:26)
[2017-09-19] MEDS: LOVENOX SUB-Q SCH (11:07)
--- NOTE | 2017-09-19 13:12 | XRay Report ---
AP and lateral chest: Cough. The lungs are hypoventilated. There is elevation of the lateral aspect of the left hemidiaphragm and there is a thickened area of linear density overlying the left heart margin representing most likely either atelectasis or infiltrate. The lungs otherwise appear generally clear. The heart is not enlarged and there is no vascular congestion. Impressions: Left basilar atelectasis/infiltrate.
[2017-09-19] MEDS: PRAVACHOL PO SCH (22:26)
[2017-09-19] MEDS: ZOFRAN IV PRN (22:35)
[2017-09-20] MEDS: DILAUDID IV PRN (06:11)
[2017-09-20] MEDS: NOVOLOG SUB-Q SCH ×4 (08:44→22:38)
[2017-09-20] MEDS: AMARYL PO SCH (08:44)
[2017-09-20] MEDS: ROCEPHIN/NS 1 GM/50 ML 1 GM/50 ML BAG IV SCH (09:38)
[2017-09-20] MEDS: LOVENOX SUB-Q SCH (09:39)
[2017-09-20] MEDS: MUCINEX ER PO SCH ×2 (09:40→22:04)
[2017-09-20] MEDS: NORVASC PO SCH (09:41)
[2017-09-20] MEDS: COZAAR PO SCH (09:41)
[2017-09-20] MEDS: COREG PO SCH ×2 (09:41→22:04)
--- NOTE | 2017-09-20 12:35 | Progress Note ---
Assessment and Plan Assessment and plan: Patient is a 47-year-old Icelandic-speaking woman with a history of hypertension and dyslipidemia not taking any medication presented with dizziness, headache and poor balance. She was found to have a blood pressure 185/104. Brain MRI read as probable recent right infarct at cervical medullary junction. Echocardiogram read as estimated EF 55-60%, trace MR, trace TR. Brain MRA read as atherosclerotic changes without high-grade stenosis of vascular occlusion. -Acute ischemic stroke with ataxia with hemiparesis: Treated with aspirin, statin, rehabilitation, neurology evaluated, told pt she can't drive -Accelerated hypertension: IV when necessary antihypertensive -Hyperglycemia most likely new diabetes mellitus type 2, A1c 7.8: Treated with sliding-scale -New issue, Dysphagia mostly related stroke: diet modified -Sepsis uti, POA: Checked blood cultures and empirically treated with antibiotics, get ua, cxr -Hypokalemia, resolved: Recheck monitor closely-hyponatremia, resolved: Continue to monitor -DVT prophylaxis: sq lovenox UA indicative of UTI, continue iv rocephin CXR ordered==>left basilar atelectasis/infiltrates: continue abx. urine culture ordered and still pending. I blood culture pending. History Interval history: Patient seen and examined. Follow-up dizziness, nausea. Patient still doesn't feel well. The daughter, Bobbi, at bedside was interpreter. Hospitalist Physical - Physical exam Narrative exam: GEN: Obese BMI 32 ill-appearing, NAD, AWAKE, ALERT, ORIENTATED 3 HEENT: NCAT, EOMI, PERRL, OP Clear NECK: supple, no adenopathy, no thyromegaly, no JVD CVS/HEART: RRR, NORMAL S1S2, NO JVD, pulses present bilaterally CHEST/LUNGS: CTA B, Symmetrical chest expansion, good air entry bilaterally GI/Abdomen: soft, NTND, good bowel sounds, no guarding or rebound /Bladder: no suprapubic tenderness, no CVA or paraspinal tenderness EXT/Skin: no c/c/e, no obvious rash MSK: FROM x 4 Neuro: CN 2-12 grossly intact, no pronator drift but significant right finger to nose past-pointing Psych: calm - Constitutional Vitals: Temp Pulse Resp BP Pulse Ox 98.2 F 80 16 146/83 87 09/20/17 07:40 09/20/17 07:40 09/20/17 07:40 09/20/17 07:40 09/20/17 07:40 General appearance: Present: no acute distress, well-nourished Results - Labs CBC & Chem 7: 09/16/17 05:58 09/17/17 05:30 Labs: Laboratory Last Values WBC 12.3 K/mm3 (4.5-11.0) H 09/16/17 05:58 RBC 4.55 M/mm3 (3.65-5.03) 09/16/17 05:58 Hgb 13.2 gm/dl (10.1-14.3) 09/16/17 05:58 Hct 38.8 % (30.3-42.9) 09/16/17 05:58 MCV 85 fl (79-97) 09/16/17 05:58 MCH 29 pg (28-32) 09/16/17 05:58 MCHC 34 % (30-34) 09/16/17 05:58 RDW 13.8 % (13.2-15.2) 09/16/17 05:58 Plt Count 286 K/mm3 (140-440) 09/16/17 05:58 Lymph % (Auto) 13.3 % (13.4-35.0) L 09/16/17 05:58 [place] % (Auto) 1.8 % (0.0-7.3) 09/16/17 05:58 Eos % (Auto) 0.0 % (0.0-4.3) 09/16/17 05:58 Baso % (Auto) 0.8 % (0.0-1.8) 09/16/17 05:58 Lymph # 1.6 K/mm3 (1.2-5.4) 09/16/17 05:58 [place] # 0.2 K/mm3 (0.0-0.8) 09/16/17 05:58 Eos # 0.0 K/mm3 (0.0-0.4) 09/16/17 05:58 Baso # 0.1 K/mm3 (0.0-0.1) 09/16/17 05:58 Seg Neutrophils % 84.1 % (40.0-70.0) H 09/16/17 05:58 Seg Neutrophils # 10.3 K/mm3 (1.8-7.7) H 09/16/17 05:58 Sodium 142 mmol/L (137-145) D 09/17/17 05:30 Potassium 3.6 mmol/L (3.6-5.0) 09/17/17 05:30 Chloride 102.5 mmol/L (98-107) 09/17/17 05:30 Carbon Dioxide 26 mmol/L (22-30) 09/17/17 05:30 Anion Gap 17 mmol/L 09/17/17 05:30 BUN 34 mg/dL (7-17) H 09/17/17 05:30 Creatinine 0.8 mg/dL (0.7-1.2) D 09/17/17 05:30 Estimated GFR > 60 ml/min 09/17/17 05:30 BUN/Creatinine Ratio 43 % 09/17/17 05:30 Glucose 239 mg/dL (65-100) H 09/17/17 05:30 POC Glucose 156 (70-105) H 09/20/17 11:32 Hemoglobin A1c 7.8 % (4-6) H 09/17/17 05:30 Calcium 8.7 mg/dL (8.4-10.2) 09/17/17 05:30 Magnesium 2.10 mg/dL (1.7-2.3) 09/15/17 13:54 Total Bilirubin 0.80 mg/dL (0.1-1.2) 09/17/17 05:30 Direct Bilirubin < 0.2 mg/dL (0-0.2) 09/15/17 13:54 AST 12 units/L (5-40) 09/17/17 05:30 ALT 13 units/L (7-56) 09/17/17 05:30 Alkaline Phosphatase 66 units/L (35-129) 09/17/17 05:30 Troponin T < 0.010 ng/mL (0.00-0.029) 09/15/17 13:54 Total Protein 7.1 g/dL (6.3-8.2) 09/17/17 05:30 Albumin 3.8 g/dL (3.9-5) L 09/17/17 05:30 Albumin/Globulin Ratio 1.2 % 09/17/17 05:30 Urine Color Yellow (Yellow) 09/19/17 02:31 Urine Turbidity Clear (Clear) 09/19/17 02:31 Urine pH 5.0 (5.0-7.0) 09/19/17 02:31 Ur Specific [place] 1.035 (1.003-1.030) H 09/19/17 02:31 Urine Protein 30 mg/dl mg/dL (Negative) 09/19/17 02:31 Urine Glucose (UA) >=500 mg/dL (Negative) 09/19/17 02:31 Urine Ketones Neg mg/dL (Negative) 09/19/17 02:31 Urine Blood Neg (Negative) 09/19/17 02:31 Urine Nitrite Neg (Negative) 09/19/17 02:31 Urine Bilirubin Neg (Negative) 09/19/17 02:31 Urine Urobilinogen 2.0 mg/dL (<2.0) 09/19/17 02:31 Ur Leukocyte Esterase Lg (Negative) 09/19/17 02:31 Urine WBC (Auto) > 182.0 /HPF (0.0-6.0) H 09/19/17 02:31 Urine RBC (Auto) 11.0 /HPF (0.0-6.0) 09/19/17 02:31 U Epithel Cells (Auto) 28.0 /HPF (0-13.0) H 09/19/17 02:31 Urine Bacteria (Auto) 3+ /HPF (Negative) 09/19/17 02:31 Urine Mucus 3+ /HPF 09/19/17 02:31 Urine Yeast (Budding) 2+ /HPF 09/19/17 02:31 Urine HCG, Qual Negative (Negative) 09/15/17 18:00
[2017-09-20] MEDS: PRAVACHOL PO SCH (22:04)
[2017-09-21] MEDS: NOVOLOG SUB-Q SCH ×4 (08:35→22:46)
[2017-09-21] MEDS: AMARYL PO SCH (08:35)
--- NOTE | 2017-09-21 08:37 | Progress Note ---
Assessment and Plan Assessment and plan: Patient is a 47-year-old Macedonian-speaking woman with a history of hypertension and dyslipidemia not taking any medication presented with dizziness, headache and poor balance. She was found to have a blood pressure 185/104. Brain MRI read as probable recent right infarct at cervical medullary junction. Echocardiogram read as estimated EF 55-60%, trace MR, trace TR. Brain MRA read as atherosclerotic changes without high-grade stenosis of vascular occlusion. -Acute ischemic stroke with ataxia with hemiparesis: Treated with aspirin, statin, rehabilitation, neurology evaluated, told pt she can't drive -Accelerated hypertension: IV when necessary antihypertensive -Hyperglycemia most likely new diabetes mellitus type 2, A1c 7.8: Treated with sliding-scale -New issue, Dysphagia mostly related stroke: diet modified -Sepsis uti, POA: Checked blood cultures and empirically treated with antibiotics, get ua, cxr -Hypokalemia, resolved: Recheck monitor closely-hyponatremia, resolved: Continue to monitor -DVT prophylaxis: sq lovenox UA indicative of UTI, continue iv rocephin CXR ordered==>left basilar atelectasis/infiltrates: continue abx. urine culture ordered and still pending blood culture pending. anticipate d/c tomorrow. History Interval history: Patient seen and examined. Follow-up dizziness, nausea. Patient still doesn't feel well. The daughter, Bobbi, at bedside was terrazzo installer. Hospitalist Physical - Physical exam Narrative exam: GEN: Obese BMI 32 ill-appearing, NAD, AWAKE, ALERT, ORIENTATED 3 HEENT: NCAT, EOMI, PERRL, OP Clear NECK: supple, no adenopathy, no thyromegaly, no JVD CVS/HEART: RRR, NORMAL S1S2, NO JVD, pulses present bilaterally CHEST/LUNGS: CTA B, Symmetrical chest expansion, good air entry bilaterally GI/Abdomen: soft, NTND, good bowel sounds, no guarding or rebound /Bladder: no suprapubic tenderness, no CVA or paraspinal tenderness EXT/Skin: no c/c/e, no obvious rash MSK: FROM x 4 Neuro: CN 2-12 grossly intact, no pronator drift but significant right finger to nose past-pointing Psych: calm - Constitutional Vitals: Temp Pulse Resp BP Pulse Ox 98.4 F 84 16 156/83 87 09/20/17 15:20 09/20/17 22:04 09/20/17 15:20 09/20/17 22:04 09/20/17 07:40 General appearance: Present: no acute distress, well-nourished Results - Labs CBC & Chem 7: 09/16/17 05:58 09/17/17 05:30 Labs: Laboratory Last Values WBC 12.3 K/mm3 (4.5-11.0) H 09/16/17 05:58 RBC 4.55 M/mm3 (3.65-5.03) 09/16/17 05:58 Hgb 13.2 gm/dl (10.1-14.3) 09/16/17 05:58 Hct 38.8 % (30.3-42.9) 09/16/17 05:58 MCV 85 fl (79-97) 09/16/17 05:58 MCH 29 pg (28-32) 09/16/17 05:58 MCHC 34 % (30-34) 09/16/17 05:58 RDW 13.8 % (13.2-15.2) 09/16/17 05:58 Plt Count 286 K/mm3 (140-440) 09/16/17 05:58 Lymph % (Auto) 13.3 % (13.4-35.0) L 09/16/17 05:58 [place] % (Auto) 1.8 % (0.0-7.3) 09/16/17 05:58 Eos % (Auto) 0.0 % (0.0-4.3) 09/16/17 05:58 Baso % (Auto) 0.8 % (0.0-1.8) 09/16/17 05:58 Lymph # 1.6 K/mm3 (1.2-5.4) 09/16/17 05:58 [place] # 0.2 K/mm3 (0.0-0.8) 09/16/17 05:58 Eos # 0.0 K/mm3 (0.0-0.4) 09/16/17 05:58 Baso # 0.1 K/mm3 (0.0-0.1) 09/16/17 05:58 Seg Neutrophils % 84.1 % (40.0-70.0) H 09/16/17 05:58 Seg Neutrophils # 10.3 K/mm3 (1.8-7.7) H 09/16/17 05:58 Sodium 142 mmol/L (137-145) D 09/17/17 05:30 Potassium 3.6 mmol/L (3.6-5.0) 09/17/17 05:30 Chloride 102.5 mmol/L (98-107) 09/17/17 05:30 Carbon Dioxide 26 mmol/L (22-30) 09/17/17 05:30 Anion Gap 17 mmol/L 09/17/17 05:30 BUN 34 mg/dL (7-17) H 09/17/17 05:30 Creatinine 0.8 mg/dL (0.7-1.2) D 09/17/17 05:30 Estimated GFR > 60 ml/min 09/17/17 05:30 BUN/Creatinine Ratio 43 % 09/17/17 05:30 Glucose 239 mg/dL (65-100) H 09/17/17 05:30 POC Glucose 210 (70-105) H 09/21/17 06:32 Hemoglobin A1c 7.8 % (4-6) H 09/17/17 05:30 Calcium 8.7 mg/dL (8.4-10.2) 09/17/17 05:30 Magnesium 2.10 mg/dL (1.7-2.3) 09/15/17 13:54 Total Bilirubin 0.80 mg/dL (0.1-1.2) 09/17/17 05:30 Direct Bilirubin < 0.2 mg/dL (0-0.2) 09/15/17 13:54 AST 12 units/L (5-40) 09/17/17 05:30 ALT 13 units/L (7-56) 09/17/17 05:30 Alkaline Phosphatase 66 units/L (35-129) 09/17/17 05:30 Troponin T < 0.010 ng/mL (0.00-0.029) 09/15/17 13:54 Total Protein 7.1 g/dL (6.3-8.2) 09/17/17 05:30 Albumin 3.8 g/dL (3.9-5) L 09/17/17 05:30 Albumin/Globulin Ratio 1.2 % 09/17/17 05:30 Urine Color Yellow (Yellow) 09/19/17 02:31 Urine Turbidity Clear (Clear) 09/19/17 02:31 Urine pH 5.0 (5.0-7.0) 09/19/17 02:31 Ur Specific [place] 1.035 (1.003-1.030) H 09/19/17 02:31 Urine Protein 30 mg/dl mg/dL (Negative) 09/19/17 02:31 Urine Glucose (UA) >=500 mg/dL (Negative) 09/19/17 02:31 Urine Ketones Neg mg/dL (Negative) 09/19/17 02:31 Urine Blood Neg (Negative) 09/19/17 02:31 Urine Nitrite Neg (Negative) 09/19/17 02:31 Urine Bilirubin Neg (Negative) 09/19/17 02:31 Urine Urobilinogen 2.0 mg/dL (<2.0) 09/19/17 02:31 Ur Leukocyte Esterase Lg (Negative) 09/19/17 02:31 Urine WBC (Auto) > 182.0 /HPF (0.0-6.0) H 09/19/17 02:31 Urine RBC (Auto) 11.0 /HPF (0.0-6.0) 09/19/17 02:31 U Epithel Cells (Auto) 28.0 /HPF (0-13.0) H 09/19/17 02:31 Urine Bacteria (Auto) 3+ /HPF (Negative) 09/19/17 02:31 Urine Mucus 3+ /HPF 09/19/17 02:31 Urine Yeast (Budding) 2+ /HPF 09/19/17 02:31 Urine HCG, Qual Negative (Negative) 09/15/17 18:00
[2017-09-21] MEDS: NORVASC PO SCH (10:53)
[2017-09-21] MEDS: COREG PO SCH ×2 (10:53→21:26)
[2017-09-21] MEDS: COZAAR PO SCH (10:54)
[2017-09-21] MEDS: MUCINEX ER PO SCH ×2 (10:54→21:26)
[2017-09-21] MEDS: LOVENOX SUB-Q SCH (10:55)
[2017-09-21] MEDS: ROCEPHIN/NS 1 GM/50 ML 1 GM/50 ML BAG IV SCH (11:35)
[2017-09-21] MEDS: PRAVACHOL PO SCH (21:26)
[2017-09-22] MEDS: NOVOLOG SUB-Q SCH ×3 (09:57→16:08)
[2017-09-22] MEDS: AMARYL PO SCH (09:58)
[2017-09-22] MEDS: MUCINEX ER PO SCH (09:58)
[2017-09-22] MEDS: COREG PO SCH (09:58)
[2017-09-22] MEDS: COZAAR PO SCH (09:59)
[2017-09-22] MEDS: NORVASC PO SCH (09:59)
[2017-09-22] MEDS: LOVENOX SUB-Q SCH (09:59)
--- NOTE | 2017-09-22 11:24 | Discharge Summary ---
Providers - Providers Date of Admission: 09/15/17 18:24 Date of discharge: 09/22/17 Attending physician: MARLENE LAZARO 09/15/17 18:44 Physical Therapy Evaluation and Treat [CONS] Routine Comment: Reason For Exam: Ataxia 09/17/17 12:57 Consult to Physician [CONS] Routine Consulting Provider: HUI SÁNCHEZ Reason For Exam: cva Place consult to:: Dr. Sánchez Notified:: Citlali RN Phone number called:: Was contact made?: Yes If yes, spoke with:: Ml-Office Time called:: 13:24 09/17/17 13:21 Consult to Physician [CONS] Routine Consulting Provider: HUI SÁNCHEZ Reason For Exam: CVA Place consult to:: Dr. Sánchez Notified:: Citlali RN Phone number called:: Was contact made?: Yes If yes, spoke with:: Ml-office Time called:: 13:24 09/17/17 13:22 Speech Therapy Evaluation and Treat [CONS] Routine Reason For Exam: aphasia 09/17/17 13:24 Consult to Dietitian/Nutrition [CONS] Routine Physician Instructions: Diabetes Education Reason For Exam: New onset T2DM Reason for Consult: Diet education Primary care physician: ELECTROPHYSIOLOGY TECHNOLOGIST Hospitalization Condition: Stable Hospital course: Patient is a 47-year-old Citizen Of [place]-speaking woman with a history of hypertension and dyslipidemia not taking any medication presented with dizziness, headache and poor balance. She was found to have a blood pressure 185/104. Brain MRI read as probable recent right infarct at cervical medullary junction. Echocardiogram read as estimated EF 55-60%, trace MR, trace TR. Brain MRA read as atherosclerotic changes without high-grade stenosis of vascular occlusion. -Acute ischemic stroke with ataxia with hemiparesis and discong eye movement: Treated with aspirin, statin, rehabilitation, neurology evaluated, I told pt she can't drive -Accelerated hypertension: IV when necessary antihypertensive -Hyperglycemia most likely new diabetes mellitus type 2, A1c 7.8: Treated with sliding-scale -New issue, Dysphagia mostly related stroke: diet modified -Sepsis uti, POA: Checked blood cultures and empirically treated with antibiotics, get ua, cxr -Hypokalemia, resolved: Recheck monitor closely-hyponatremia, resolved: Continue to monitor -DVT prophylaxis: sq lovenox UA indicative of UTI, continue iv rocephin CXR ordered==>left basilar atelectasis/infiltrates: continue abx. urine culture normal trung blood culture negative d/w case management, pt given a 4legged walker and referral to physical therapy Disposition: [id number] HOME UNDER HOME HL Time spent for discharge: 35 minutes Core Measure Documentation - Palliative Care Palliative Care/ Comfort Measures: Not Applicable - Core Measures Any of the following diagnoses?: stroke - VTE Discharge Requirements Deep Vein Thrombosis/Pulmonary Embolism Present on Admission: No Has pt received <5 days of overlap therapy or INR<2.0: No Anticoagulant overlap therapy prescribed at discharge: No Contraindication No Overlap Therapy order at DC: Not Indicated - Stroke Discharge Requirements Statin for LDL = or >70 mg/dl on DC: Yes Anticoag for atrial fib/atrial flutter: Not Applicable Reason for no anticoag for AF/F on DC: Not Indicated Antithrombotic for ischemic stroke: Yes Exam - Physical Exam Narrative exam: GEN: Obese BMI 32 ill-appearing, NAD, AWAKE, ALERT, ORIENTATED 3 HEENT: NCAT, EOM abnormal, PERRL, OP Clear NECK: supple, no adenopathy, no thyromegaly, no JVD CVS/HEART: RRR, NORMAL S1S2, NO JVD, pulses present bilaterally CHEST/LUNGS: CTA B, Symmetrical chest expansion, good air entry bilaterally GI/Abdomen: soft, NTND, good bowel sounds, no guarding or rebound /Bladder: no suprapubic tenderness, no CVA or paraspinal tenderness EXT/Skin: no c/c/e, no obvious rash MSK: FROM x 4, right hemiparesis Neuro: CN 2-12 grossly intact, no pronator drift but significant right finger to nose past-pointing/dysmetria, poor gait and balance Psych: calm - Constitutional Vitals: Temp Pulse Resp BP Pulse Ox 98.8 F 75 20 160/87 98 09/22/17 08:18 09/22/17 08:18 09/22/17 08:18 09/22/17 08:18 09/22/17 08:18 Plan Activity: other (no strenous activity until cleared by pcp, no driving) Diet: low salt, diabetic Special Instructions: physical therapy Durable Medical Equipment Needed Upon Discharge: Walker-Standard Follow up with: PRIMARY CAREMD [Primary Care Provider] - 3-5 Days HUI SÁNCHEZ MD [Staff Physician] - 7 Days Prescriptions: Pravastatin [Pravachol] 20 mg PO QHS #30 tablet amLODIPine [Norvasc] 10 mg PO QDAY #30 tablet Amoxicillin/Potassium Clav [Augmentin 875-125 Tablet] 1 each PO BID #5 day Aspirin [Aspirin TAB] 325 mg PO ONCE #30 day Carvedilol [Coreg] 12.5 mg PO BID #30 day Glimepiride [Amaryl] 2 mg PO QDDIAB #30 day Losartan [Cozaar] 100 mg PO QDAY #30 day oxyCODONE /ACETAMINOPHEN [Percocet 5/325 mg] 1 tab PO Q6H PRN #30 tablet PRN Reason: Pain , Severe (7-10)
[2017-09-22 11:59] VITALS: BP 135/71
[2017-09-22] MEDS: cefTRIAXone 1 GM in NACL 0.9% 20 ML IV SCH ×2 (12:17→12:23)
== END 2017-09-22 17:45 | disposition home health service (06) | DRG 871 ==
LOC: ED 12:14 → 4A 18:24 → 3A 09-17 17:51
PROVIDERS: ADMIT Internal Medicine; ATTEND Internal Medicine
DX: A41.9 Sepsis, unspecified organism (principal); I63.9 Cerebral infarction, unspecified; I67.4 Hypertensive encephalopathy; G81.90 Hemiplegia, unspecified affecting unspecified side; I16.0 Hypertensive urgency; R27.0 Ataxia, unspecified; E66.9 Obesity, unspecified; Z68.32 Body mass index [BMI] 32.0-32.9, adult; I10 Essential (primary) hypertension; E78.00 Pure hypercholesterolemia, unspecified; E78.5 Hyperlipidemia, unspecified; E11.65 Type 2 diabetes mellitus with hyperglycemia; E87.6 Hypokalemia; R27.8 Other lack of coordination
CPT/HCPCS: 36415; 70450; 70544; 70551; 71010; 71020; 74230; 80048; 80053; 80074; 81001; 81025; 82962; 83036; 83735; 84484; 85025; 85027; 87040; 87086; 93005; 93010; 93306; 93880; 96374; 96375; A9270-GY; J0360; J0696; J1170; J1650; J1815; J2405; J2765